=== PATIENT | female | born 1985 | race Caucasian/White ===

== ENCOUNTER 2024-10-02 20:40 | Emergency (ER) | payer OTHER, SELFPAY ==
[2024-10-02 20:43] VITALS: BP 116/67
[2024-10-02 21:08] LABS: % Basophils 0.5 % (0-2); % Eosinophils 2.5 % (0-6); % Immature Granulocytes 0.2 % (0-0.5); % Lymphocytes 31.3 % (20.5-51.1); % Monocytes 6.6 % (1.7-9.3); % Neutrophils 58.9 % (42.2-75.2); Absolute Eosinophils 0.2 10^3/uL (0-0.7); Absolute Monocytes 0.4 10^3/uL (0.1-0.6); Absolute Neutrophils 3.7 10^3/uL (1.4-6.5); Hematocrit 34.8 % (37.0-47.0); Hemoglobin 12.2 g/dL (12.0-16.0); Mean Corp Hgb Conc. 35.1 g/dL (33.0-37.0); Mean Corpuscular Hgb 30.1 pg (27.0-31.0); Mean Corpuscular Volume 85.9 fL (81.0-99.0); Mean Platelet Volume 9.7 fL (7.4-10.4); Nucleated Red Blood Cells % 0 %; Platelet Count 373 10^3/uL (130-400); Red Blood Cell Count 4.05 10^6/uL (4.20-5.40); Red Cell Dist. Width 12.3 % (11.5-14.5); White Blood Cell Count 6.3 10^3/uL (4.8-10.8)
[2024-10-02 21:38] LABS: ALT (SGPT) 21 U/L (0-35); AST (SGOT) 23 U/L (14-36); Albumin 4.8 g/dl (3.5-5.0); Alkaline Phosphatase 128 U/L (38-126); Blood Urea Nitrogen 9 mg/dl (7-17); Calcium 9.9 mg/dl (8.4-10.2); Carbon Dioxide 23 mmol/L (22-30); Chloride 107 mmol/L (98-107); Glucose 93 mg/dl (70-99); Potassium 4.4 mmol/L (3.5-5.1); Sodium 136 mmol/L (135-145); Total Bilirubin 0.4 mg/dl (0.2-1.3); Total Protein 8.1 g/dl (6.3-8.2); eGFR > 60.00
[2024-10-02 21:40] LABS: Lipase 39 U/L (23-300)
[2024-10-02 22:20] LABS: Urine Albumin Negative (Neg - Trace); Urine Bilirubin Negative (Negative); Urine Character Clear (Clear); Urine Color Yellow; Urine Glucose Negative (Negative); Urine Ketone Negative (Negative); Urine Leukocyte Negative (Negative); Urine Nitrite Negative (Negative); Urine Occult Blood Negative (Negative); Urine Urobilinogen Negative (Neg - 1+)
[2024-10-03 00:39] VITALS: BP 122/69
[2024-10-03 00:40] VITALS: BMI 19.4
--- NOTE | 2024-10-03 00:43 | ED.GENMED ---
History of Present Illness
General
Chief Complaint: Abdominal Pain
Source: patient
Exam Limitations: none
Time Seen by Provider: 10/03/24 00:17
History of Present Illness
History of Present Illness:
Note:
CHIEF COMPLAINT(S)
Abdominal pain.
HISTORY OF PRESENT ILLNESS
The patient is a 39-year-old female with a past medical history of migraines who presenting with abdominal pain and diarrhea. The diarrhea began approximately August 28, 2024, following antibiotic treatment post-surgery, and the patient described it as
malodorous and porridge-like. The diarrhea resolved following a course of vancomycin initiated by the surgeon, although a C. difficile infection was not confirmed. The patient reports ongoing gastrointestinal issues, a history of constipation,
weight loss of nearly 20 pounds over two weeks, and dehydration. The patient states that the diarrhea has resolved and they did obtain a stool sample last week and she is awaiting the results from her primary care provider additionally, she
experiences fever-like chills, yet no fever is recorded at home. The patient also reports tension and numbness in the abdominal region that started a few weeks ago near her tummy tuck procedure, with symptoms worsening over time, now accompanied by
back pain. The symptoms have not been fully evaluated by a CT scan, as insurance approval is pending. She denies any nausea, vomiting, chest pain, shortness of breath, dark tarry stools, rectal bleeding.
ADDITIONAL HISTORY OBTAINED FROM SOURCES OTHER THAN THE PATIENT
According to family history, the patients sister has Crohns disease, and her brother has inflammatory gut issues.
EXTERNAL RECORDS REVIEWED
Prior colonoscopy approximately four to five years ago showed normal findings, despite constipation complaints at the time.
CHRONIC MEDICAL CONDITIONS SIGNIFICANTLY AFFECTING CARE
Chronic conditions affecting care: a family history of inflammatory bowel disease.
SOCIAL HISTORY
No recent substance use or smoking mentioned.
REVIEW OF SYSTEMS
See HPI
PHYSICAL EXAM
Nursing notes reviewed and vital signs reviewed.
General: Patient is well appearing and in no acute distress; non-toxic
Skin: Warm and dry, no rashes or lesions
Head: Normocephalic, atraumatic
Eyes: Sclera non-icteric. EOMs intact.
Cardiac: Regular rate and rhythm, no murmurs
Peripheral Vascular: No lower extremity swelling or edema
Pulm: Normal respiratory effort, no wheezes, rales, rhonchi
Abdomen: Bilateral lower abdominal quadrant tenderness to palpation. Negative Garzon sign. No tenderness at McBurney's point. Normoactive bowel sounds
Neuro: CN II-XII intact, no focal neurologic deficits.
Psychiatric: Anxious affect.
PLAN
CT scan, CMP, CBC, urinalysis
DIFFERENTIAL DIAGNOSIS
The Differential Diagnosis includes, in no particular order and is not limited to:
- Infectious colitis
- Clostridioides difficile infection
- Crohns disease
- Ulcerative colitis
- Irritable bowel syndrome
- Diverticulitis
- Small intestinal bacterial overgrowth
- Gastritis
- Pancreatic insufficiency
- Gastroenteritis
- Ischemic colitis
MDM/DISPOSITION
The patient is a 39-year-old female with a past medical history of migraines who presenting with abdominal pain and diarrhea. The diarrhea has since resolved but she did collect a sample last week that she sent to her primary care provider and she
is awaiting her results. Abdominal pain comes and goes. She feels like there is a tightness and stretching sensation. Seem to start after her tummy tuck. She has no fevers or chills. She has no nausea or vomiting. She went for CAT scan showed
findings consistent with enteritis. This explains diarrhea. Stool cultures pending. There is also evidence of distention of the gallbladder with multiple gallstones. Patient is pain-free with Toradol. Patient does feel like the pain gets worse
as her eating. The CT scan also reveals questionable mild gallbladder wall thickening however no definitive very cholecystic fat infiltration and normal CBD. In light of no right upper quadrant pain, normal CMP, highly doubt early cholecystitis.
Strict return precautions discussed. Patient stable for discharge to follow-up with her PCP.
Past History
Past History
ED Past Medical History: None and Other (Chronic back pain, migraines)
ED Past Surgical History: Other (Spinal fusion 2009 for which she is in pain management with Methadone 20 mg q 6 hours)
Social History
Tobacco: Non-smoker
Alcohol: None
Drug: None
Personal: Single
Living: with family
Family History
Family History: Unable to obtain
Phy Exam
Physical Exam
Physical Exam:
see hpi
Course
Orders/Labs/Results
Orders:
Orders
10/02/24 20:49
IV Insert/Care/Rem.- Treatment PRN
10/02/24 20:54
Complete Blood Count/With Diff Urgent
Comprehensive Metabolic Panel Urgent
HCG, Serum Qualitative Screen Urgent
Comment: ADD ON
Lipase Urgent
10/02/24 22:11
Urinalysis Reflex To Culture Urgent
Date Specimen was Collected: 10/02/24
Time Specimen was Collected: 20:49
10/03/24 00:57
Ketorolac [Toradol] 15 mg IV NOW STA
10/03/24 00:58
CT Abd/pelvis W Iv Cont Urgent
Comment:
Reason For Exam: right lower abdominal pain
0.9% Sodium Chloride 500 ml [Nss] 500 ml IV BOLUS
Test Result ONCE
10/03/24 01:17
Add On- LAB Urgent
Comments:: HCG
Tests Added?: HCG serum qualitative
Abnormal Lab Results
10/02/24
20:54
RBC 4.05 L 10^6/uL
(4.20-5.40)
Hct 34.8 L %
(37.0-47.0)
Alkaline Phosphatase 128 H U/L
(38-126)
10/02/24 20:54
10/02/24 20:54
Vital Signs
Initial and Last Documented VS:
Initial Vital Signs
Temp Pulse Resp BP Pulse Ox
98 F 114 16 116/67 94
10/02/24 20:43 10/02/24 20:43 10/02/24 20:43 10/02/24 20:43 10/02/24 20:43
Last Documented Vital Signs
Temp Pulse Resp BP Pulse Ox
98.5 F 114 16 103/63 100
10/03/24 05:20 10/02/24 20:43 10/02/24 20:43 10/03/24 02:00 10/03/24 00:44
*Pulse Oximetry
SaO2: 100
Oxygen Mode of Delivery: Room air
Patient hypoxic: no
*Critical Care Note
Total Time (30-74mins, 75-104mins- exclusive of procedures): Not Applicable
ED Attending Note
-
Portions of this chart may have been created with voice recognition software.� Occasional wrong word or��sound alike� substitutions may have occurred due to the inherent limitations of voice recognition software.
Discharge Plan
Departure
Patient Disposition: Home (Routine Discharge)
Date of Disposition: 10/03/24
Time of Disposition: 05:21
Patient with high blood pressure during this ER visit?: Yes
Condition: Good
Discharge Problem:
Abdominal pain
Instructions: Abdominal Pain, BLOOD PRESSURE
Prescriptions:
No Action
prenat.vits,elly,yhg-ucco-kzbic Tablet
1 tab PO DAILY
methadone 10 mg/mL Concentrate
110 mg PO DAILY
Patient Comments:
01/28/22 LG: confirmed dose with [facility] [phone]
methadone 10 mg/mL Concentrate
70 mg PO QPM
Patient Comments:
01/28/22 LG: confirmed dose with [facility] [phone]
acetaminophen 325 mg Tablet
650 mg PO Q4HPRN PRN (Reason: mild pain) Qty: 30 0RF
ibuprofen 600 mg Tablet
600 mg PO Q6HPRN PRN (Reason: moderate pain/cramps) Qty: 30 0RF
Referrals:
UNKNOWN - PT DOES,NOT KNOW [Unknown Provider]
Activity Restrictions/Additional Instructions:
As discussed, your CAT scan showed evidence of gallstones. Your urinalysis is normal. Your blood work is unremarkable.
Please follow-up with your primary care provider for the results of your stool study.
PLEASE RETURN TO THE EMERGENCY DEPARTMENT TO DEVELOP ACUTE WORSENING OR SYMPTOMS, YELLOWING OF THE EYES OR SKIN, FEVERS OR CHILLS, INTRACTABLE NAUSEA OR VOMITING, CHEST PAIN OR SHORTNESS OF BREATH, OR ANY OTHER SIGNS OR SYMPTOMS WORRISOME TO YOU.
Interventions
Interventions:
*Risk Screen - Suicide Last Done: 10/02/24 20:43
*General Assessment Last Done: 10/03/24 00:43
*Neglect/Abuse Screening Last Done: 10/02/24 20:43
*ED- Fall Risk Assessment Last Done: 10/03/24 00:43
*ED COVID-19 Vaccine History Last Done: 10/03/24 00:43
*Nursing Disposition Last Done: 10/03/24 05:27
RM-Hcrvto-Uhwsccpogf Assessment Last Done: 10/03/24 00:57
Discharge Date and Time
Discharge Date/Time: 10/03/24 06:43
Print Language: KHMER
[2024-10-03] MEDS: NSS 500 IV (01:22)
[2024-10-03] MEDS: TORADOL 15 MG IV (01:23)
[2024-10-03 01:55] LABS: HCG, Serum Qualitative Screen Negative
[2024-10-03 02:00] VITALS: BP 103/63
== END 2024-10-03 06:43 | disposition home or self-care (01) ==
LOC: EMR 20:40
PROVIDERS: Emergency Medicine; EMERGENCY PHYSICIAN Student in an Organized Health Care Education/Training Program; FAMILY PHYSICIAN Physician Assistant
DX: R10.9 Unspecified abdominal pain (principal); R20.0 Anesthesia of skin; R63.4 Abnormal weight loss; K80.20 Calculus of gallbladder without cholecystitis without obstruction; R03.0 Elevated blood-pressure reading, without diagnosis of hypertension; G43.909 Migraine, unspecified, not intractable, without status migrainosus; M54.9 Dorsalgia, unspecified; F11.90 Opioid use, unspecified, uncomplicated; Z98.890 Other specified postprocedural states; Z98.1 Arthrodesis status
CPT/HCPCS: 99284; 96374; 96361; 74177; 80053; 81003; 83690; 84703; 85025; Q9967

== ENCOUNTER 2024-10-09 18:31 | Emergency (ER) | payer OTHER, SELFPAY ==
[2024-10-09 18:35] VITALS: BP 137/82
[2024-10-09 19:53] VITALS: BP 129/75
[2024-10-09 19:58] VITALS: BP 129/75; BMI 19.7
[2024-10-09 20:02] VITALS: BP 134/79
[2024-10-09 20:10] LABS: Hematocrit 33.4 % (37.0-47.0); Hemoglobin 11.8 g/dL (12.0-16.0); Mean Corp Hgb Conc. 35.3 g/dL (33.0-37.0); Mean Corpuscular Volume 86.8 fL (81.0-99.0); Nucleated Red Blood Cells % 0 %; Platelet Count 331 10^3/uL (130-400); Red Cell Dist. Width 12.3 % (11.5-14.5)
[2024-10-09 20:19] LABS: HCG, Serum Qualitative Screen Negative
[2024-10-09 20:22] LABS: ALT (SGPT) 35 U/L (0-35); AST (SGOT) 25 U/L (14-36); Albumin 4.8 g/dl (3.5-5.0); Alkaline Phosphatase 148 U/L (38-126); Blood Urea Nitrogen 8 mg/dl (7-17); Calcium 10.1 mg/dl (8.4-10.2); Carbon Dioxide 25 mmol/L (22-30); Chloride 105 mmol/L (98-107); Estimated Creatinine Clearance 116 ml/min; Glucose 107 mg/dl (70-99); Lipase 29 U/L (23-300); Potassium 4.7 mmol/L (3.5-5.1); Sodium 137 mmol/L (135-145); Total Protein 8.2 g/dl (6.3-8.2); eGFR > 60.00
--- NOTE | 2024-10-09 20:50 | ED.GENMED ---
History of Present Illness
General
Chief Complaint: Abdominal Symptoms
Time Seen by Provider: 10/09/24 20:09
History of Present Illness
History of Present Illness:
39-year-old female history of chronic back pain, migraines presenting with multiple complaints. Patient states that she has been having 'GI issues' for the past few months. Patient states that she had a tummy tuck and breast augmentation in July.
Patient states that before that she was on Keflex and then another antibiotic. Patient states that since then she was having diarrhea. Patient states she was treated with vancomycin for presumed cdiff but never tested. Patient states that she has
since had negative stool cultures. Patient states that she was seen in the emergency department last week, diagnosed with enteritis and discharged. Patient states that she has been feeling worse, noticed bright red blood in her stool. Patient
states that she has been constipated for the past few days, states that she has been straining to using enemas to have bowel movements. Patient states that she is not passing gas for months. Patient reports increasing shortness of breath. No
chest pain. Patient states she feels shaky and has had 'brain fog'. No fevers. Patient denies vomiting or urinary symptoms. Patient reports being concerned for IBD as family members have hx of crohns.
Past History
Past History
ED Past Medical History: None and Other (Chronic back pain, migraines)
ED Past Surgical History: Other (Spinal fusion 2009 for which she is in pain management with Methadone 20 mg q 6 hours)
Social History
Tobacco: Non-smoker
Alcohol: None
Drug: None
Personal: Single
Living: with family
Family History
Family History: Unable to obtain
Phy Exam
Physical Exam
Physical Exam:
General: Alert, no acute distress
Head: NCAT
Eyes: clear conjunctiva
Neck: supple
Cardiac: regular rate and rhythm, no murmur
Lungs: clear to auscultation bilaterally. No wheezes, rales, or rhonchi. Speaking full unlabored sentences. No respiratory distress.
Abdomen: soft, nondistended. Patient reports diffuse abdominal tenderness but nontender when patient distracted. Well-healing surgical incision lower abdomen with no overlying erythema or discharge.
MSK: no lower extremity edema bilaterally. No deformity
Skin: warm, dry
Neuro: Alert and oriented x3. no focal deficits
Psych: Anxious
: Minimal stool. No blood. Guaiac negative.
Course
Orders/Labs/Results
Orders:
Orders
10/09/24 18:38
Test Result ONCE
10/09/24 19:57
Complete Blood Count/With Diff Urgent
Comprehensive Metabolic Panel Urgent
HCG, Serum Qualitative Screen Urgent
Lipase Urgent
10/09/24 20:49
0.9% Sodium Chloride 1000 ml [Nss] 1,000 ml IV BOLUS
Dicyclomine [Bentyl] 20 mg PO NOW STA
10/09/24 21:07
Troponin I Urgent
10/09/24 21:39
D-Dimer Urgent
10/09/24 22:42
CT Pe/abd/pel W Urgent
Comment: changed to combine
Reason For Exam: sob, tachycardia
10/09/24 22:52
Ketorolac [Toradol] 15 mg IV NOW STA
10/09/24 23:03
UA Reflex to Culture [Urinalysis Reflex To Culture] Urgent
Date Specimen was Collected: 10/09/24
Time Specimen was Collected: 23:00
Abnormal Lab Results
10/09/24 10/09/24
19:57 21:39
RBC 3.85 L 10^6/uL
(4.20-5.40)
Hgb 11.8 L g/dL
(12.0-16.0)
Hct 33.4 L %
(37.0-47.0)
D-Dimer 1.21 H ug/mlFEU
(0.00-0.50)
Glucose 107 H mg/dl
(70-99)
Alkaline Phosphatase 148 H U/L
(38-126)
10/09/24 19:57
10/09/24 19:57
Vital Signs
Initial and Last Documented VS:
Initial Vital Signs
Temp Pulse Resp BP Pulse Ox
98.4 F 55 16 137/82 97
10/09/24 18:35 10/09/24 18:35 10/09/24 18:35 10/09/24 18:35 10/09/24 18:35
Last Documented Vital Signs
Temp Pulse Resp BP Pulse Ox
98.2 F 96 18 140/79 99
10/09/24 19:58 10/10/24 00:57 10/10/24 00:57 10/10/24 00:57 10/10/24 00:57
MDM/Problems Addressed
Differential Diagnosis Includes:
IBS, PE, PARISA, electrolyte abnormality
MDM/Problems Addressed:
39-year-old female presenting with lower abdominal tightness and increased back pain with constipation worsening since last week. Patient was seen in the emergency department last week, diagnosed with enteritis and was discharged without
antibiotics. Patient states that she has noticed that her heart rate has been elevated for the past day with shortness of breath for the past few months. Patient denies chest pain. On evaluation, patient anxious appearing. Abdomen soft
nondistended nontender when patient distracted. Well-healing surgical incision lower abdomen. Given guaiac negative, hemoglobin stable, low suspicion for IBD.
Labs significant for baseline anemia at 11.8 (previously 12.2 last week). UA negative for UTI
CTA shows no pulmonary embolism, no thoracic aneurysm or dissection. Lungs are clear. Mediastinal and cardiac structures are unremarkable. CT abdomen pelvis shows mild rectal wall thickening which may be due to underdistention or proctitis. No
bowel obstruction. Appendix not visualized. Mild mesenteric congestion. No free air or free fluid. Pessary device is noted. No hydronephrosis or nephrolithiasis.
Discussed results with patient at bedside. Discussed reassuring results here in the emergency department. Heart rate improved to 96. Stable for discharge home with GI follow-up outpatient
*Pulse Oximetry
SaO2: 90
Oxygen Mode of Delivery: Room air
Patient hypoxic: no
*Critical Care Note
Total Time (30-74mins, 75-104mins- exclusive of procedures): Not Applicable
ED Attending Note
-
Portions of this chart may have been created with voice recognition software.� Occasional wrong word or��sound alike� substitutions may have occurred due to the inherent limitations of voice recognition software.
Discharge Plan
Departure
Patient Disposition: Home (Routine Discharge)
Date of Disposition: 10/10/24
Time of Disposition: 01:41
Patient with high blood pressure during this ER visit?: Yes
Discharge Problem:
Lower abdominal pain
Instructions: Abdominal Pain, BLOOD PRESSURE
Prescriptions:
No Action
prenat.vits,elly,nho-feta-uizod Tablet
1 tab PO DAILY
methadone 10 mg/mL Concentrate
110 mg PO DAILY
Patient Comments:
01/28/22 LG: confirmed dose with [facility] [phone]
methadone 10 mg/mL Concentrate
70 mg PO QPM
Patient Comments:
01/28/22 LG: confirmed dose with [place] [phone]
acetaminophen 325 mg Tablet
650 mg PO Q4HPRN PRN (Reason: mild pain) Qty: 30 0RF
ibuprofen 600 mg Tablet
600 mg PO Q6HPRN PRN (Reason: moderate pain/cramps) Qty: 30 0RF
Referrals:
Madi Bruno MD [Active, Gastroenterology]
Andrew Chowdhury MD [Family Provider, Family Practice]
Activity Restrictions/Additional Instructions:
Follow-up with GI
Return to the emergency department for fever or new symptoms
Interventions
Interventions:
*Risk Screen - Suicide Last Done: 10/09/24 18:38
*General Assessment Last Done: 10/10/24 02:20
*Neglect/Abuse Screening Last Done: 10/09/24 18:38
*ED- Fall Risk Assessment Last Done: 10/10/24 02:20
*ED COVID-19 Vaccine History Last Done: 10/10/24 02:20
*Nursing Disposition Last Done: 10/10/24 02:20
SN-Csuiad-Pywqyqkkhy Assessment Last Done: 10/09/24 20:14
Discharge Date and Time
Discharge Date/Time: 10/10/24 02:21
Print Language: URDU
[2024-10-09] MEDS: BENTYL 20 MG PO (21:04)
[2024-10-09] MEDS: NSS 1000 IV (21:06)
[2024-10-09 21:51] LABS: Troponin I < 0.012 ng/ml
[2024-10-09 22:01] LABS: D-Dimer 1.21 ug/mlFEU (0.00-0.50)
[2024-10-09] MEDS: TORADOL 15 MG IV (22:57)
[2024-10-09 23:12] LABS: Urine Character Clear (Clear)
[2024-10-10 00:23] VITALS: BP 132/76
[2024-10-10 00:57] VITALS: BP 140/79
== END 2024-10-10 02:21 | disposition home or self-care (01) ==
LOC: EMR 18:31
PROVIDERS: Student in an Organized Health Care Education/Training Program; EMERGENCY PHYSICIAN Emergency Medicine; FAMILY PHYSICIAN Family Medicine
DX: R10.30 Lower abdominal pain, unspecified (principal); K92.1 Melena; R06.02 Shortness of breath; K59.00 Constipation, unspecified; R03.0 Elevated blood-pressure reading, without diagnosis of hypertension; K52.9 Noninfective gastroenteritis and colitis, unspecified; M54.9 Dorsalgia, unspecified; D64.9 Anemia, unspecified; G43.909 Migraine, unspecified, not intractable, without status migrainosus; F11.90 Opioid use, unspecified, uncomplicated; G89.29 Other chronic pain; Z98.1 Arthrodesis status
CPT/HCPCS: 99284; 96361 ×2; 96374; 71275; 74177; 80053; 81003; 83690; 84484; 84703; 85025; 85379; Q9967

== ENCOUNTER 2024-10-31 04:55 | Inpatient (IN) | payer OTHER, SELFPAY ==
[2024-10-30 20:18] VITALS: BP 126/90
[2024-10-30 21:21] LABS: Hematocrit 40.4 % (37.0-47.0); Hemoglobin 13.6 g/dL (12.0-16.0); Mean Corp Hgb Conc. 33.7 g/dL (33.0-37.0); Mean Corpuscular Volume 88.6 fL (81.0-99.0); Nucleated Red Blood Cells % 0 %; Platelet Count 476 10^3/uL (130-400); Red Cell Dist. Width 12.3 % (11.5-14.5)
[2024-10-30 21:24] VITALS: BMI 19.4
[2024-10-30 21:45] LABS: HCG, Serum Qualitative Screen Negative
[2024-10-30 21:49] LABS: ALT (SGPT) 26 U/L (0-35); AST (SGOT) 27 U/L (14-36); Albumin 5.2 g/dl (3.5-5.0); Alkaline Phosphatase 150 U/L (38-126); Blood Urea Nitrogen 13 mg/dl (7-17); Calcium 10.0 mg/dl (8.4-10.2); Carbon Dioxide 26 mmol/L (22-30); Chloride 99 mmol/L (98-107); Estimated Creatinine Clearance 118 ml/min; Glucose 135 mg/dl (70-99); Potassium 4.1 mmol/L (3.5-5.1); Sodium 135 mmol/L (135-145); Total Protein 9.1 g/dl (6.3-8.2); eGFR > 60.00
[2024-10-30] MEDS: MORPHINE SULFATE 4 MG IV (23:52)
[2024-10-30] MEDS: NSS 1000 IV (23:54)
[2024-10-30] MEDS: ZOFRAN 4 MG IV (23:54)
[2024-10-31] MEDS: DILAUDID 0.5 MG IV ×2 (00:50→03:30)
[2024-10-31] MEDS: OFIRMEV 100 IV (01:21)
--- NOTE | 2024-10-31 02:32 | ED.GENMED ---
History of Present Illness
General
Chief Complaint: Back Pain
Source: patient
Exam Limitations: none
Time Seen by Provider: 10/30/24 23:30
Nursing documentation reviewed up to this point in time: agreed with
History of Present Illness
History of Present Illness:
Note:
CHIEF COMPLAINT(S)
Pain, unspecified location and duration.
HISTORY OF PRESENT ILLNESS
The patient is a 39-year-old female who presents with pain. The onset of the pain was at 3:30, as stated by the patient. During the discussion, the patient indicated that there was a significant discomfort, described as 'a lot.' The exact location
and character of the pain were not specified during the conversation. Patient states that the pain is sharp in nature. Radiates through to her back. She also did have some chest tightness.
PHYSICAL EXAM
General: Alert, severe acute distress. Writhing in the bed, alternatively pacing around the room
Skin: Warm, dry.
Head: Normocephalic, atraumatic.
Neck: Supple, trachea midline.
Eye Ears, Nose, Mouth and Throat: Oral mucosa moist.
Cardiovascular: Normal peripheral perfusion, No edema.
Respiratory: Respirations are non-labored.
Gastrointestinal: Abdomen nondistended. Surgical scar in the lower abdomen horizontally where patient had a 'tummy tuck'. She spoke with Dr. Cordova who ordered lab work earlier.
Back: Normal range of motion, Normal alignment.
Musculoskeletal: Normal ROM, normal strength.
Neurological: Alert and oriented to person, place, time, and situation, No focal neurological deficit observed.
Psychiatric: Cooperative, appropriate mood & affect.
PLAN
The plan includes administering pain medication and allowing time for the medication to take effect, with a reassessment planned approximately 15 minutes after administration. The patient expressed consent for pain relief intervention.
DIFFERENTIAL DIAGNOSIS
The Differential Diagnosis includes, in no particular order and is not limited to:
1. Musculoskeletal pain
2. Neuropathic pain
3. Inflammatory conditions
4. Acute injury
5. Psychosomatic pain
6. Referred pain from visceral organs
7. Acute infection such as cellulitis or abscess
8. Gastrointestinal disturbance
9. Cervical or lumbar radiculopathy
10. Stress-related conditions
CARE-UPDATE
10/31/24 - 00:41
Patient reports a month-long history of abdominal tightness progressive to severe back pain, exacerbated heart rate, episodes of dizziness, confusion, and fluctuating oxygen levels. Symptoms coincide with previous autoimmune-like presentations,
including oral ulcers and systemic inflammation, possibly related to bowel issues. Recent bowel movement irregularities include severe constipation and diarrhea with blood, resulting in significant unintentional weight loss and frequent bruising.
Abdominal distention and persistent pain prompted consultation. Elevated calprotectin suggests inflammation, while low iron saturation, high C-reactive protein, and ferritin levels indicate systemic response. Methadone use has decreased due to
exacerbated symptoms. Recent D-dimer elevation, despite a previous negative lung scan for embolism, warrants repeat imaging to rule out thromboembolic events. Upcoming diagnostics include lung and abdominal CT scans. Current symptoms suggest an
urgent need for comprehensive evaluation and management, given high clot risk and systemic alterations. Monitoring involves a heart rate tracker for further insight into cardiovascular implications. Patient reassured and prepared for upcoming tests
and interventions.
CARE-UPDATE
10/31/24 - 03:12
Patient reports severe abdominal pain, unable to sit for initial CAT scan. Administered [appropriate medication name] for pain management. Plan to administer an additional dose due to persistent pain, followed by another attempt at imaging.
CARE-UPDATE
10/31/24 - 04:[address] chest PE studies; no acute findings noted. No immediate changes in management necessary based on current imaging. Continue monitoring patients status.
Disposition:
SUMMARY OF ENCOUNTER
A 39-year-old female was seen in the emergency department for severe abdominal pain, with a background of acute on chronic back pain. Initial assessment included completing a CT scan, which returned with negative findings. Due to the exacerbation of
the patients symptoms and increased usage of pain medication, the decision was made for hospital admission.
DISPOSITION
Admit
ASSESSMENT
The patient presents with severe abdominal pain and acute on chronic back pain.
PLAN
The patient will be admitted to a hospital service for further management and monitoring.
INDEPENDENT REVIEW OF LABS AND INTERPRETATION OF TESTS
My independent review of the CT scan indicates no acute findings.
MEDICAL DECISION MAKING
- Number and Complexity of Problems Addressed: Chronic conditions affecting care [chronic low back pain]
- Data:
- Category 2: My independent interpretation of the CT scan indicates no acute findings.
- Risk: Due to the increasing pain and medication usage, the decision for hospital admission was made to manage the complexity and risk of the patients presenting complaints and to closely monitor.
DIAGNOSIS
- Abdominal pain (ICD-10: R10.9)
- Chronic low back pain (ICD-10: M54.5)
Past History
Past History
ED Past Medical History: None and Other (Chronic back pain, migraines)
ED Past Surgical History: Other (Spinal fusion 2009 for which she is in pain management with Methadone 20 mg q 6 hours)
Social History
Tobacco: Non-smoker
Alcohol: None
Drug: None
Personal: Single
Living: with family
Family History
Family History: Unable to obtain
Phy Exam
General Physical Exam
General Presentation: moderate distress
General age: appears stated age
General Skin: warm
General Habitus: normal
General Mental: alert
General Hydration: appears well hydrated
ENT Exam
ENT Exam: EOMI, pharynx normal, neck supple and normocephalic
Eye Exam
Eye Exam: PERRL, cornea clear and conjunctiva normal
Cardiovascular Exam
Cardiovascular Exam: regular rate/rhythm, no edema, no murmur and normal peripheral pulses
Pulmonary Exam
Pulmonary Exam: lungs clear, no respiratory distress, no rales, no crackles, no rhonchi, no stridor, no wheezing and no cough
Gastrointestinal Exam
Gastrointestinal Exam: soft, non distended, no cva tenderness, guarding, no indwelling devices and tender
Palpation: generalized: Severe tenderness
Neurological Exam
Neurological Exam: alert, oriented x3, no motor deficits and speech normal
Musculoskeletal Exam
Musculoskeletal Exam: full ROM and no edema
Skin Exam
Skin Exam: normal color, warm/dry, no rash and no petechia
Psychiatric Exam
Psychiatric Exam: normal mood/affect
Course
Orders/Labs/Results
Orders:
Orders
10/30/24 20:24
Test Result ONCE
10/30/24 21:11
C-Reactive Protein Urgent
Comment: ADDED
Complete Blood Count/With Diff Urgent
Comprehensive Metabolic Panel Urgent
Erythrocyte Sed Rate Urgent
Comment: ADDED
HCG, Serum Qualitative Screen Urgent
Lactic Acid Urgent
10/30/24 23:51
0.9% Sodium Chloride 1000 ml [Nss] 1,000 ml IV BOLUS
Morphine Sulfate 4 mg .ROUTE .STK-MED ONE
Ondansetron Injectable [Zofran] 4 mg .ROUTE .STK-MED ONE
Ondansetron Injectable [Zofran] 4 mg IV NOW STA
10/30/24 23:52
Morphine Sulfate 4 mg IV NOW STA
10/31/24 00:45
HYDROmorphone [Dilaudid] 0.5 mg IV NOW STA
10/31/24 00:46
CT Pe/abd/pel W Urgent
Comment: wrong order placed by attending. ok to change
Reason For Exam: Elev ddimer, cp, tachy, hematochezia
10/31/24 01:16
Acetaminophen 1000MG/100Ml [Ofirmev] 1,000 mg in 100 ml IV ONCE
Acetaminophen IV Indication:: ED Narcotic History-ONCE
10/31/24 02:06
HYDROmorphone [Dilaudid] 0.5 mg IV NOW STA
10/31/24 02:22
Lorazepam [Ativan] 1 mg IV NOW STA
10/31/24 04:12
Fentanyl Citrate/Pf [Sublimaze] 25 mcg IV NOW STA
10/31/24 04:17
Add On- LAB Stat
Tests Added?: CRP, ESR
Calprotectin, Fecal [S] Stat
Stool Culture Stat
TAVO Source: Feces/Stool
Specimen Description:
Stool For WBC Stat
TAVO Source: Feces/Stool
Specimen Description:
Stool for occult blood [Hemetest Stools] As Directed
10/31/24 04:21
Urine Drug Abuse Screen Routine
10/31/24 04:22
Admit/Transfer Patient As Directed
Co-Sign Provider:
Level of Care: Inpatient admission
Assign to:: Medical/Surgical
Physician / Group: Lokes[facility]
Diagnosis: abdominal pain
Reason for Hospitalization: intractable abdominal pain
Expected length of stay greater than two midnights?: Yes
ELOS- Estimated Length of Stay in days: 2
I certify the patient meets the requirements for IP care: Yes
10/31/24 04:23
Code Status As Directed
Resuscitation Status: Full Code
PRN Pain Medication Management As Directed
May give lesser potent ordered pain med per pt: Yes
preference::
Protocol:: Medication orders for pain may be administered in a
manner that supports deferring to patient preference
when the pt is:
- Requesting an ordered lesser potent pain medication.
Least to most potent pain medications are defined
as: acetaminophen < NSAID < tramadol < opioids
(morphine, oxycodone, hydromorphone).
- Requesting a lesser dose of the same medication IF
ORDERED.
- Requesting a less intrusive route of administration
if both routes are prescribed by the provider (PO <
IV).
10/31/24 04:32
Urine Porphobilinogen [Porphobilinogen, Urine] [S] Stat
10/31/24 04:38
Urinalysis Routine
Date Specimen was Collected: 10/31/24
Time Specimen was Collected: 04:37
Abnormal Lab Results
10/30/24 10/31/24
21:11 04:38
WBC 16.6 H 10^3/uL
(4.8-10.8)
Plt Count 476 H 10^3/uL
(130-400)
Abs Immat Gran (auto) 0.1 H 10^3/uL
(0-0.05)
Absolute Neuts (auto) 13.6 H 10^3/uL
(1.4-6.5)
Absolute Monos (auto) 1.3 H 10^3/uL
(0.1-0.6)
Neutrophils % 82.0 H %
(42.2-75.2)
Lymphocytes % 9.1 L %
(20.5-51.1)
Glucose 135 H mg/dl
(70-99)
Lactic Acid 2.3 H mmol/L
(0.7-2.0)
Alkaline Phosphatase 150 H U/L
(38-126)
Total Protein 9.1 H g/dl
(6.3-8.2)
Albumin 5.2 H g/dl
(3.5-5.0)
Urine Albumin 2+ A
(Neg - Trace)
10/30/24 21:11
10/30/24 21:11
Vital Signs
Initial and Last Documented VS:
Initial Vital Signs
Temp Pulse Resp BP Pulse Ox
97.6 F 137 20 126/90 98
10/30/24 20:18 10/30/24 20:18 10/30/24 20:18 10/30/24 20:18 10/30/24 20:18
Last Documented Vital Signs
Temp Pulse Resp BP Pulse Ox
97.6 F 98 22 99/54 100
10/30/24 20:18 10/31/24 04:35 10/31/24 04:35 10/31/24 04:36 10/31/24 04:35
*Pulse Oximetry
SaO2: 98
Oxygen Mode of Delivery: Room air
Patient hypoxic: no
*Critical Care Note
Total Time (30-74mins, 75-104mins- exclusive of procedures): 35 (Critical care statement: A total of 35 minutes of critical care time was provided for this patient. This time is separate from time utilized to perform the aforementioned documented
procedures. Aggregate critical care time includes only time during which I was engaged in work directl)
Update Note
Update Note:
Patient states that she has not too much pain to lie flat for CT scan. Has received multiple doses of pain medicine we will try angiolytic.
NAME: MERLYLOUISChung HOLLY Antoine
DATE OF EXAM: 10/31/2024
Patient No: [id number]
Physician: BRUCE
Date of : 1985
Past Medical History (entered by Technologist):
Reason For Exam (entered by Technologist):
Other Notes (entered by Technologist): Patient arrives c/o left sided flank/back pain. Reports pain radiates down into left leg. Denies loss of bowel or bladder.
Additional Information (per [facility] Radiologist): Left-sided flank pain and back pain
CTA chest PE
CT abdomen and pelvis
Comparison: 10/09/2024
IMPRESSION:
CTA chest PE:
Sufficient contrast opacification of the pulmonary arteries
There is limitation due to respiratory motion
No appreciable pulmonary embolus to the segmental pulmonary arterial level
No appreciable acute thoracic aortic pathology on this non-ECG gated exam
Normal size heart
Pericardium appears within normal limits
No evidence for pneumonia or pulmonary edema
No pleural effusion or pneumothorax
CT abdomen and pelvis:
No obstructing ureteral calculus, hydroureteronephrosis or signs of polynephritis
Urinary bladder appears thickened which could be due to incomplete distention versus possible cystitis
No other acute intra-abdominal pathology
Previous posterior fusionL5-S1
Probable bone island in the left femoral neck
Report faxed directly to ER at 4:50 AM ET
Abhijeet Damian M.D.
This report has been electronically signed and verified by the Radiologist whose name is printed above.
ED Attending Note
-
Portions of this chart may have been created with voice recognition software.� Occasional wrong word or��sound alike� substitutions may have occurred due to the inherent limitations of voice recognition software.
Discharge Plan
Departure
Patient Disposition: Admit
Date of Disposition: 10/31/24
Time of Disposition: 05:03
Admit to: Telemetry
Presentation/result/management discussed w/ accepting MD/DO: Hospitalist
Condition: Fair
Discharge Problem:
Abdominal pain, Chest pain
Interventions
Interventions:
*Risk Screen - Suicide Last Done: 10/30/24 20:18
*Neglect/Abuse Screening Last Done: 10/30/24 20:18
ED-Musculoskeletal Assessment Last Done: 10/30/24 21:26
[2024-10-31] MEDS: ATIVAN 1 MG IV (02:35)
--- NOTE | 2024-10-31 03:16 | HPS.HSE ---
Family Physician
-
Family Physician: NOT KNOW UNKNOWN - PT DOES
Chief Complaint
-
Abdominal pain
History of Present Illness
This is a 39-year-old female with past medical history of cutaneous T-cell lymphoma, chronic back pain, opioid dependence on methadone who presents to the Emergency Department with persistent abdominal pain.
According to patient and spouse she has been having abdominal pain for several weeks now and has had extensive studies as an outpatient. Patient has had multiple CT scans she is also had multiple blood test and also stool studies. Patient stated
that abdominal pain is usually in the bilateral lower quadrant radiating to the back. She said that she occasionally has had bloody stools. However over the last 2 days she has had a copious amount of bloody stool and large amount of mucus in her
stool. She denies any rash. She denies any fevers or chills. She denies nausea or vomiting. She reports weight loss and decreased p.o. intake. Due to the abdominal pain she has a scheduled follow-up with GI on November 09.
Patient showed me some of her tests and specifically she had a stool study that was negative for bacteria parasites but was positive for fecal calprotectin at over 1200. She reports family history with sister with IBD, brother with IBS but no other
family history. She had a recent abdominoplasty as well as breast augmentation in July without complications. She denies bowel obstruction. Recent CT scan negative for bowel obstruction or peritonitis. He is also had a recent CT scan for PE
that was negative in early October. She denies dysuria or hematuria. Since being in the emergency department pain has been intractable.
Independent department patient was afebrile, blood pressure was 126/90 with a pulse of 100 and respiratory of 24.
CBC showed a white count of 16.6 otherwise unremarkable. Electrolytes were all normal, BUN/creatinine were normal. Lactic acid was slightly abnormal at 2.3.
LFTs were normal. Alk phos slightly elevated. Albumin was 5.2 with a total protein of 9
Medical History
Past Medical History
Past Medical History: Reports Other
Additional Past Medical History:
Cutaneous T-cell lymphoma
Anxiety
Past Surgical History: Reports Other
Social History
Tobacco: Non-smoker
Alcohol: None
Drug: None
Living: With Family
Family History
Family History: Not pertinent
Allergies / Home Medications
Allergies reflects when Allergies were last updated in [employer].
Home Medications with original date entered in [employer]
Allergy/Medication List:
Allergies
Allergy/AdvReac Type Severity Reaction Status Date / Time
No Known Allergies Allergy Verified 10/30/24 20:17
Home Medications
Valchlor 0.016 % 1 application Externally Active
Clobetasol Propionate 0.05 % 1 application to affected area Externally Twice a day for 10 day(s) Active
Methadone HCl 10 MG take 1 tablet by oral route every 8 hours as needed Oral takes 10mg BID Active
NuvaRing 0.12-0.015 MG/24HR [address] for 3 weeks, remove, and replace with a new ring after 7 day break Vaginal for 28 days Jul, Active
Gabapentin 300 MG 1 capsule Orally three times a day for 30 day(s) prn Active
Concerta 36 MG 1 tablet in the morning Orally Once a day for 30 days Oct, Active
Ritalin 5 MG 1 tablet in the afternoon Orally Once a day for 30 days Oct, Active
traZODone HCl 50 MG 1 tablet at bedtime as needed Orally Once a day for 30 day(s) Active
LORazepam 1 MG 1-4 tablets as needed 30 mins prior to dental appt Orally Once a day for 1 days Jul, Active
Review of Systems
-
Constitutional: Reports No Symptoms
EENT: Reports No Symptoms
Respiratory: Reports No Symptoms
Cardiac: Reports No Symptoms
Abdomen/GI: Reports Abdominal Pain and Diarrhea
: Reports No Symptoms
Musculoskeletal: Reports No Symptoms
Skin: Reports No Symptoms
Neurological: Reports No Symptoms
Endocrine: Reports No Symptoms
Hematologic/Lymphatic: Reports No Symptoms
Psych: Reports No Symptoms
Physical Exam
Vital Signs
Vital Signs
Temp Pulse Resp BP Pulse Ox
97.6 F 101 24 126/90 97
10/30/24 20:18 10/31/24 02:43 10/31/24 02:43 10/30/24 20:18 10/31/24 02:43
Physical Exam
General: Well Developed, Well Nourished and No Apparent Distress
HEENT: NormoCephalic, Moist mucous membranes and Atraumatic
Respiratory: Clear
Cardiac: S1/S2 and Regular Rhythm; No Murmur or Rub
GI: Soft, Non Tender, Non Distended and Normal Bowel Sounds; No Organomegaly
Rectal: Deferred by Provider
Musculoskeletal: No Clubbing, No Cyanosis and No Edema
Skin: No Rash
Neuro: Nonfocal/grossly intact
Hematologic/Lymphatic: No Lymphadenopathy
Laboratory Results
-
10/30/24 21:11
10/30/24 21:11
Laboratory Results
Lactic Acid 2.3 mmol/L (0.7-2.0) H 10/30/24 21:11
Total Bilirubin 0.6 mg/dl (0.2-1.3) 10/30/24 21:11
AST 27 U/L (14-36) 10/30/24 21:11
ALT 26 U/L (0-35) 10/30/24 21:11
Alkaline Phosphatase 150 U/L (38-126) H 10/30/24 21:11
Data Reviewed
-
CT Scan: Report Reviewed by me
Lab Data: Labs Reviewed by me
Old Records: Reviewed
Impression/Plan
-
IMPRESSION:
39-year-old with history of continues T-cell lymphoma, opioid dependence and chronic pain with on a methadone taper and now on 20 mg twice daily, presenting with several weeks of abdominal pain and more recently having intermittent bloody stools and
mucus containing stools with outpatient studies concerning for inflammatory bowel disease. She is here with leukocytosis and intractable abdominal pain. She has a mild elevation in lactic acid to 2.3. CT of the abdomen pelvis is pending.
PLAN:
Abdominal pain -concern is for inflammatory or infectious colitis. Less likely infectious colitis given history. If inflammatory w/u negative consider acute intermittent porphyria.
- Admit to MedSurg
- Inflammatory panel and fecal studies pending
- CTAP neg, CT PE neg
- N.p.o. for now
- IV fluids, antiemetics, pain control (patient on methadone and likely needs basal and breakthrough pain control)
- UA, U tox, U PBG
- GI consultation
DVT prophylaxis�Lovenox subcu
CODE STATUS�full code
[2024-10-31] MEDS: SUBLIMAZE 25 MCG IV (04:31)
[2024-10-31 04:36] VITALS: BP 99/54
[2024-10-31 04:48] LABS: Urine Character Clear (Clear)
[2024-10-31 05:10] LABS: Urine Squamous Cell >30 /LPF (Few)
[2024-10-31 05:11] LABS: Urine Red Blood Cell None Seen /HPF (0-2); Urine White Cell None Seen /HPF (0-5)
[2024-10-31 05:16] LABS: C-Reactive Protein 16.20 mg/L (0.0-10.00)
[2024-10-31 05:41] VITALS: BP 112/72; BMI 19.3
[2024-10-31] MEDS: D5LR 1000 IV ×2 (05:56→23:59)
[2024-10-31] MEDS: DILAUDID 1 MG IV ×5 (06:00→23:59)
--- NOTE | 2024-10-31 06:20 | PTCARENOTE ---
pt transported from ED to 3W via stretcher. Pt 1-2 assist from stretcher to bed d/t 01/18 abdominal pain. Pt vitals stable, BP 112/72, afebrile, spO2 100 RA. Pt AAOX3, able to make needs known, oriented to room and call allen within reach.
[2024-10-31 06:49] LABS: Hematocrit 30.8 % (37.0-47.0); Hemoglobin 10.3 g/dL (12.0-16.0); Mean Corp Hgb Conc. 33.4 g/dL (33.0-37.0); Mean Corpuscular Volume 89.3 fL (81.0-99.0); Platelet Count 340 10^3/uL (130-400); Red Cell Dist. Width 12.3 % (11.5-14.5)
[2024-10-31 07:12] LABS: Blood Urea Nitrogen 12 mg/dl (7-17); Calcium 9.0 mg/dl (8.4-10.2); Carbon Dioxide 27 mmol/L (22-30); Chloride 102 mmol/L (98-107); Estimated Creatinine Clearance 113 ml/min; Glucose 103 mg/dl (70-99); Potassium 4.1 mmol/L (3.5-5.1); Sodium 135 mmol/L (135-145); eGFR > 60.00
[2024-10-31 07:35] VITALS: BP 104/63
--- NOTE | 2024-10-31 09:26 | CON.GI ---
Addendum entered and electronically signed by Bridgett Howe DO 10/31/24 14:50:
Patient seen and examined independently of YELENA. I agree with her note with my additions below
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
abdominal pain that radiated around to her back. She was recently seen by Dr. Marine Schmitz, GI at [place] and had a positive C. difficile toxin that I reviewed and her [facility] ashley from October 24. She is currently not on any therapy but was
started on Dificid today by YELENA Casas.
She was down in HIDA scan this morning. She does not have biliary type symptoms. No nausea or vomiting. No upper abdominal pain. Her liver chemistries are normal except her alkaline phosphatase is mildly elevated. Her CRP is elevated her WBCs
on admission was 16. All consistent with an inflammatory process like C. difficile.
Patient has had chronic GI issues more with constipation but after her elective cosmetic surgery she developed diarrhea and was empirically treated like C. difficile with vancomycin. The multiple stools she was having did improve but then recently
returned with progressive mucus. She had a C. difficile that was negative earlier in October. She has had multiple imaging studies, none with oral contrast. She has a fecal calprotectin done on 10/24/2024 over thousand. She has significant family
history of inflammatory bowel disease with her sister.
Agree with Dificid. Patient has follow-up with Dr. Shepherd and like to stay here [place] on November 09. She did have endoscopy and colonoscopy back in 2020. She does have a positive GLORIA and a higher titer.
After her treatments resolution of C. difficile, would recommend repeating her colonoscopy to ensure not concomitant IBD.
If patient does not improve consider ID consult
Original Note:
Consultation
-
Date/Time Consultation Requested: 10/31/24529
Date/Time Consultation Performed: 10/31/24929
Requesting Provider: sury Campa MD
Performing Provider: YELENA Chawla, Bridgett Howe DO
Reason for Consultation: abdominal pain/diarrhea
Medical History
Chief Complaint / HPI
Chief Complaint: abdominal pain, diarrhea, rectal bleeding
History of Present Illness:
Pt is a 39yo with hx t cell lymphoma follow with Dr. Joseph on topical therapy, prior back surgery, chronic pain on methadone , anxiety, with recent breast Augmentation and tummy tuck in July. She recall taking post-op abx then onset of diarrhea.
Per patient recall she was placed on PO vanco but never had stool culture +. She continued with symptoms with multiple ER visits with Ct completed x 3 with neg PE as noted with elevated D dimer, gallstones and mild enteritis. She was due to see
Dr. Shepherd scheduled for November 09 but due to continued issues saw Dr. Schmitz through [place] sooner. She completed further stool GI profile now noted with + c-diff and fecal ELLY 1250 with recent GLORIA + CRP 11.63 and ESR 10 on [facility] labs.
In review with patient she admits to feeling of chest tightness, feeling of palpitations and increasing lower abdominal pain. + wt loss up to 20 lbs with recent illness, She did continued with loose stools and noted some small amount of blood
but increased bleeding prior to admission. She has strong family hx IBD in Aunt and sister and brother with IBS. On admission WBC 16,600, hbg 13.6, lactate 2.3, glucose 135, alk phos 150, CRP 16.2. Pt was also due for halter monitor test
outpatient.
01/2021- Dr. Shepherd colon adequate prep to TI - Non-bleeding internal hemorrhoids.
- The examination was otherwise normal.
- The examined portion of the ileum was normal.
- Three diminutive polyps in the rectum, removed with
a jumbo cold forceps. Resected and retrieved.
- Biopsies were taken with a cold forceps from the
entire colon for evaluation of microscopic colitis
bx neg microscopic colitis, polyp HP changes
01/2021- Dr. Shepherd - Normal esophagus.
- Erythematous mucosa in the antrum with hematin.
Biopsied.
- Normal examined duodenum. Biopsied.
bx neg celiac, neg H pylori, neg metaplasia
Past Medical History
Past Medical History: Psychiatric (anxiety ) and Other (chronic pain, HNP, Ezema, cutaneous T cell lymphoma )
Past Surgical History: Orthopedic (back surgery ) and Other (recent breast augmentation and tummy tuck )
Social History
Tobacco: Non-Smoker
Alcohol: None
Drug: None
Personal:
Living: With Family
Family History
Family History: Other (aunt and sister with IBD, brother with IBS)
Allergies / Home Medications
Allergy/AdvReac Type Severity Reaction Status Date / Time
No Known Allergies Allergy Verified 10/30/24 20:17
�Medication �Instructions �Recorded
prenat.vits,elly,[id number] 1 tab PO DAILY Supplement 01/27/22
methadone 10 mg/mL oral concentrate 70 mg PO QPM substance use disorder 01/28/22
methadone 10 mg/mL oral concentrate 110 mg PO DAILY substance use 01/28/22
disorder
acetaminophen 325 mg tablet 650 mg (2 x 325 mg) PO Q4HPRN PRN 01/29/22
mild pain #30 tabs
ibuprofen 600 mg tablet 600 mg PO Q6HPRN PRN moderate 01/29/22
pain/cramps #30 tabs
Review of Systems
-
History Source: Patient
Constitutional: Reports Weight Loss
EENT: Reports No Symptoms
Respiratory: Reports Other (chest tightness )
Abdomen/GI: Reports Abdominal Pain, Diarrhea and Bloody Stools
: Reports No Symptoms
Musculoskeletal: Reports No Symptoms
Skin: Reports No Symptoms
Neurological: Reports Dizzy and Weakness
Endocrine: Reports No Symptoms
Hematologic/Lymphatic: Reports Bleeding
Vital Signs
Temp Pulse Resp BP Pulse Ox
98.9 F 97 14 104/63 98
10/31/24 07:35 10/31/24 07:35 10/31/24 07:35 10/31/24 07:35 10/31/24 07:35
Physical Exam
Exam
General: Other (pale appearing, slight anxiety with abdominal pain)
HEENT: Normocephalic and Anicteric
Respiratory: Clear
Cardiac: Regular Rhythm (with period of tachycardia )
GI: Soft, Non Distended and Tender (diffuse )
Musculoskeletal: No Clubbing and No Cyanosis
Skin: Warm and Dry
Neuro: Awake, Alert and AO x 3
Psych: Calm
Results
WBC 10.2 10^3/uL (4.8-10.8) 10/31/24 06:08
Hgb 10.3 g/dL (12.0-16.0) L D 10/31/24 06:08
Hct 30.8 % (37.0-47.0) L 10/31/24 06:08
MCV 89.3 fL (81.0-99.0) 10/31/24 06:08
Plt Count 340 10^3/uL (130-400) D 10/31/24 06:08
Absolute Neuts (auto) 13.6 10^3/uL (1.4-6.5) H 10/30/24 21:11
Sodium 135 mmol/L (135-145) 10/31/24 06:08
Potassium 4.1 mmol/L (3.5-5.1) 10/31/24 06:08
Chloride 102 mmol/L (98-107) 10/31/24 06:08
Carbon Dioxide 27 mmol/L (22-30) 10/31/24 06:08
BUN 12 mg/dl (7-17) 10/31/24 06:08
Creatinine 0.5 mg/dL (0.6-1.0) L 10/31/24 06:08
Calcium 9.0 mg/dl (8.4-10.2) 10/31/24 06:08
Total Bilirubin 0.6 mg/dl (0.2-1.3) 10/30/24 21:11
AST 27 U/L (14-36) 10/30/24 21:11
ALT 26 U/L (0-35) 10/30/24 21:11
Alkaline Phosphatase 150 U/L (38-126) H 10/30/24 21:11
Diagnostic Image Results:
10/03/24 CT A/p IV contrast
CT findings could reflect a mild enteritis. No other acute process identified in the abdomen or pelvis.
Cholelithiasis.
10/09/24 CT PE.A/p
No evidence of central pulmonary embolism.
Likely gallbladder stones.
Mild rectal wall thickening which may be due to underdistention or proctitis.
Fluid-filled small bowel again seen, nonspecific, cannot exclude enteritis some mild mesenteric congestion. No intestinal obstruction or free air. Appendix not discretely identified.
10/31/24 CT PE A/p
No acute disease of the chest, abdomen and pelvis. No evidence of pulmonary embolus nor aortic dissection.
Probable partially calcified gallstone versus gallbladder sludge. Stable.
Prior GI Procedures:
01/2021- Dr. Shepherd colon adequate prep to TI - Non-bleeding internal hemorrhoids.
- The examination was otherwise normal.
- The examined portion of the ileum was normal.
- Three diminutive polyps in the rectum, removed with
a jumbo cold forceps. Resected and retrieved.
- Biopsies were taken with a cold forceps from the
entire colon for evaluation of microscopic colitis
bx neg microscopic colitis, polyp HP changes
01/2021- Dr. Shepherd - Normal esophagus.
- Erythematous mucosa in the antrum with hematin.
Biopsied.
- Normal examined duodenum. Biopsied.
bx neg celiac, neg H pylori, neg metaplasia
Assessment / Plan
-
Pt is a 39yo with hx t cell lymphoma follow with Dr. Joseph on topical therapy, prior back surgery, anxiety, chronic pain on methadone with recent breast Augmentation and tummy tuck in July. She recall taking post-op abx then onset of diarrhea.
Per patient recall she was placed on PO vanco but never had stool culture +. She continued with symptoms with multiple ER visits with Ct completed x 3 with neg PE as noted with elevated D dimer, gallstones and mild enteritis. She was due to see
Dr. Shepherd scheduled for November 09 but due to continues issues saw Dr. Schmitz through [place] sooner . She completed further stool GI profile now noted with + c-diff and fecal ELLY 1250 with recent GLORIA + CRP 11.63 and ESR 10 on [facility] labs. In
review with patient she admits to feeling of chest tightness, feeling of palpitations and increasing lower abdominal pain. + wt loss up to 20 lbs with recent illness, She did continued with loose stools and noted some small amount of blood but
increased bleeding prior to admission. She has strong family hx IBD in Aunt and sister and brother with IBS. On admission WBC 16,600, hbg 13.6, lactate 2.3, glucose 135, alk phos 150, CRP 16.2. Pt was also due for halter monitor test outpatient.
01/2021- Dr. Shepherd colon adequate prep to TI - Non-bleeding internal hemorrhoids. HP polyps, neg microscopic colitis
-diarrhea/rectal bleeding
-newly report + c-diff from OP [facility] testing
-elevated fecal elly 1250 + CRP 11.63 and ESR 10
-recent breast Augmentation/tummy tuck 07/2024 with post-op abx/diarrhea and prior vanco therapy
-CT with enteritis
-tachycardia
-elevated lactate on admission
-leukocytosis - improving
other med problems:
-t cell lymphoma follow with Dr. Joseph on topical therapy
- prior back surgery
- chronic pain on methadone
-anxiety
-gallstones
PLAN:
etiology of symptoms with concern for + c-diff-- pt did report prior course of Vanco post surgery and prior neg culture but now + through [facility]
will add Dificid BID
repeat studies pending for stool culture and WBC's, porpheria, fecal elly and drug screen
monitor stool output
ok for clear diet advance as tolerated
t/c eventual repeat colonoscopy -- pt is due follow up with Dr. Shepherd for OP visit to review
reviewed with nursing staff for isolation
pain control per hospitalist
family updated
-
-
Thank you for consultation and allowing me to participate in the patient's care. Please call the [facility] consultant GI physician during the after hours with any questions or concerns.
--- NOTE | 2024-10-31 13:59 | W.PN.HOSP.TC ---
Addendum entered and electronically signed by Rick Watson MD 10/31/24 15:27:
SCDs for PPx since hematochezia
Original Note:
Today's Communication/Plan
-
see PN
Assessment / Plan
Assessment / Plan
39yo F with PMHx of spinal fusion, Hx of opioid dependence due to back pain, recent abdominoplasty in July 2024 developed progressive abdominal pain after surgery, in Jul-August treated with empiric oral Vanc (completed 10 days as per patient) by her
PCP, however had progressive severe abdominal pain. On the day of admission developed hematochezia, so cme to the hosptal. patient had extensive w/u as outpatient and found positive Calprotectin in 1250, positive GLORIA titer 1:160 with homogenous
pattern and on 10/23/22 test - positive C.diff. CT chest for PE and abd/pelvis in ED without acute findings
A/P:
#C.diff colitis with acute on chronic blood loss anemia with hematochezia
#Elevated alk.phos
Stool Cx
Dificid as per GI. Colonoscopy outpatient eventually
CT with partially calcified gallstone versus gallbladder sludge -HIDA pending
#Positive GLORIA
can be 2/2 IBD with elevated calprotectin
If IBD w/u neg - advised outpatient plasma center technician - patient verbalized understanding
#Leukocytosis
#Thrombocytosis
on admission
most likely dehydration
cont IVF
#Back pain
recently developed transivet LE nmbness
MRI lumbar spine
#execcive bruising
check PT/PTT - if elevated, will need outpatient 4 year olds preschool teacher
DVT ppx lovenox
Full code
I have spent at least 59min reviewing chart, test results, communication with consultants and providing direct patient care
Anticipated Discharge: 24 - 48 hours
Subjective/Interval History
-
Date of Service: October 31, 2024
Objective Data
-
Labs:
Laboratory Results
10/31/24
06:08
WBC 10.2
Hgb 10.3 L D
Hct 30.8 L
Plt Count 340 D
Sodium 135
Potassium 4.1
Chloride 102
Carbon Dioxide 27
BUN 12
Creatinine 0.5 L
Glucose 103 H
Calcium 9.0
Vital Signs:
Vital Signs
Temp Pulse Resp BP Pulse Ox
98.9 F 97 14 104/63 98
10/31/24 07:35 10/31/24 07:35 10/31/24 07:35 10/31/24 07:35 10/31/24 07:35
Review of Systems
-
History Source: Patient
All other systems: Reviewed and negative
Constitutional: Reports Weight Loss
Abdomen/GI: Reports Abdominal Pain
Neuro: Reports Numbness (b/l LE)
Physical Exam
-
General: No Apparent Distress
HEENT: Normocephalic
Respiratory: Clear to Auscultation; Negative Wheezes or Crackles
Cardiac: Regular Rhythm
GI: Soft, Nondistended and Tender
Musculoskeletal: No Clubbing, No Cyanosis and No Edema
Neuro: Awake, Alert, Oriented, AO x 3 and No Motor Deficits
Psych: Calm
[2024-10-31 14:19] LABS: Reticulocyte Count 1.1 % (0.4-2.8)
[2024-10-31 14:33] LABS: APTT 30.3 Sec (23.4-35.0); INR 1.02; PT 13.9 Sec (11.4-14.6)
[2024-10-31] MEDS: RITALIN 5 MG PO (14:41)
[2024-10-31] MEDS: DIFICID 200 MG PO ×2 (14:42→20:57)
[2024-10-31 15:35] VITALS: BP 121/70
[2024-10-31 15:47] LABS: Iron 30 ug/dl (37-170); LDH 217 U/L (120-246); Magnesium 2.0 mg/dl (1.6-2.3)
[2024-10-31 15:56] LABS: Total Iron Binding Capacity 292 ug/dl (265-497)
[2024-10-31 16:10] LABS: Cortisol, Random 13.5 ug/dl
[2024-10-31 16:14] LABS: Ferritin 109.0 ng/ml (6.24-137)
[2024-10-31 16:46] LABS: Folate 7.8 ng/ml (2.76-20); Vitamin B12 643 pg/ml (239-931)
[2024-10-31] MEDS: FERRLECIT 110 MG IV (18:03)
--- NOTE | 2024-10-31 19:16 | PTCARENOTE ---
Communicated with patient, pharmacy, and MD regarding patients Methadone taken at home, 24mg BID. Received form for patient to sign regarding clinic/prescription information to be sent over for verification. Form sent back to pharmacy. Awaiting
verification.
[2024-10-31 23:23] VITALS: BP 109/53
[2024-11-01] MEDS: DILAUDID 1 MG IV ×6 (03:00→20:59)
[2024-11-01 08:08] VITALS: BP 104/57
[2024-11-01] MEDS: DIFICID 200 MG PO ×2 (08:14→20:25)
[2024-11-01 08:18] LABS: Hematocrit 30.7 % (37.0-47.0); Hemoglobin 10.0 g/dL (12.0-16.0); Mean Corp Hgb Conc. 32.6 g/dL (33.0-37.0); Mean Corpuscular Volume 91.1 fL (81.0-99.0); Platelet Count 318 10^3/uL (130-400); Red Cell Dist. Width 12.5 % (11.5-14.5)
--- NOTE | 2024-11-01 11:08 | W.PN.HOSP.TC ---
Addendum entered and electronically signed by iRck Watson MD 11/01/24 11:15:
#MIRTHA
iron IV and outpatient w/u
#Hx of tachycardia
scheduled outpatient card
telemetry while inpatient
Original Note:
Today's Communication/Plan
-
pending PBG urine
Abd dyscomfort improving
NeuroSx consult
Assessment / Plan
Assessment / Plan
39yo F with PMHx of spinal fusion, Hx of opioid dependence due to back pain, recent abdominoplasty in July 2024 developed progressive abdominal pain after surgery, in Jul-August treated with empiric oral Vanc (completed 10 days as per patient) by her
PCP, however had progressive severe abdominal pain. On the day of admission developed hematochezia, so cme to the hospital. patient had extensive w/u as outpatient and found positive Calprotectin in 1250, positive GLORIA titer 1:160 with homogenous
pattern and on 10/23/22 test - positive C.diff. CT chest for PE and abd/pelvis in ED without acute findings. FOund c.diff colitis and progression of lumbar spinal disease
A/P:
#C.diff colitis with acute on chronic blood loss anemia with hematochezia
#Elevated alk.phos
Stool Cx
Dificid as per GI. Colonoscopy outpatient eventually
CT with partially calcified gallstone versus gallbladder sludge - HIDA neg for biliary pathology
PBG urine pending
#Positive GLORIA
can be 2/2 IBD with elevated calprotectin
If IBD w/u neg - advised outpatient metal sprayer machined parts - patient verbalized understanding
#Leukocytosis
#Thrombocytosis
on admission
most likely dehydration
cont IVF
#Back pain with Hx of L5/S1 surgery in [place]
#Chronic opioid dependence on methadone due to pain
recently developed transient LE numbness
MRI lumbar spine: Interval progression of degenerative disc disease at L4-5. Interval development of bilateral lateral recess stenosis as well as moderate overall central canal stenosis. Moderate right foraminal narrowing which has significantly
increased since 2012 examination.
NeuroSx consult
cont pain mgmt
#excessive bruising
PT/PTT - WNL
DVT ppx lovenox
Full code
I have spent at least 52min reviewing chart, test results, communication with consultants and providing direct patient care
Anticipated Discharge: 24 - 48 hours
Subjective/Interval History
-
Date of Service: November 01, 2024
Objective Data
-
Labs:
Laboratory Results
11/01/24
08:00
WBC 5.2
Hgb 10.0 L
Hct 30.7 L
Plt Count 318
Vital Signs:
Vital Signs
Temp Pulse Resp BP Pulse Ox
98.7 F 85 16 104/57 100
11/01/24 08:08 11/01/24 08:08 11/01/24 08:08 11/01/24 08:08 11/01/24 08:08
I&O
10/31/24 11/01/24 11/02/24
06:59 06:59 06:59
Intake Total 1200 / 1200 240 / 240
Output Total 100 / 100
Balance 1200 / 1200 140 / 140
Review of Systems
-
History Source: Patient
All other systems: Reviewed and negative
Abdomen/GI: Reports Abdominal Pain and Bloated
Musculoskeletal: Reports Other (bck pain)
Neuro: Reports Numbness (b/l LE intermittent)
Physical Exam
-
General: No Apparent Distress
HEENT: Normocephalic
Respiratory: Clear to Auscultation
GI: Soft, Nondistended and Tender (diffuse)
Musculoskeletal: No Clubbing, No Cyanosis and No Edema
Skin: Warm
Neuro: Awake, Alert, Oriented, AO x 3 and No Motor Deficits
Psych: Calm
[2024-11-01] MEDS: RITALIN 5 MG PO (11:40)
[2024-11-01] MEDS: METHADONE 100 MG/10 ML 24 MG PO ×2 (11:40→20:25)
[2024-11-01] MEDS: FERRLECIT 110 MG IV (12:10)
--- NOTE | 2024-11-01 12:19 | PN.CDI ---
Addendum entered and electronically signed by Rick Watson MD 11/01/24 12:40:
sepsis never mentioned as no concern for it
Original Note:
CDI
- -
CDI:
Physician Documentation Request
Admit Date: 10/31/24 04:55
Dear Doctor,
Please review the following and provide your response in the progress notes.
Clinical Indicators:
Pt admitted with C.diff colitis with acute on chronic blood loss anemia with hematochezia.
Selected Entries
10/30/24
20:18 10/31/24
02:43 10/31/24
03:00
Pulse 137 101 123
Laboratory Tests
10/30/24
21:11
WBC 16.6 H
Lactic Acid 2.3 H
C-Reactive Protein 16.20 H
Please clarify which of the following most accurately describes the status of the patient's infection:
Sepsis
- Systemic manifestations of infection, with 2 or more SIRS criteria which include:
- Fever >100.9 degrees F or hypothermia < 96.8 degrees F
- Leukocytosis - WBC > 12,000 or leukopenia - WBC < 4,000 or > 10% bands
- Tachycardia > 90 beats per minute
- Tachypnea - RR > 20 breaths per minute or PaCO2 , 32mmHg
Source: Merck Manual 2013
- Indicate the known or suspected underlying infection, such as UTI, pneumonia or cellulitis
- Indicate if a suspected bacterial infection of unknown source
C.diff colitis Only, Without Systemic Illness
Other
Use of terms such as suspected, likely, concern for, or probable (associated with a specific diagnosis that is being evaluated, monitored, or treated as if it exists) are acceptable and can be coded in the inpatient setting, when documented at the
time of discharge.
Thank you,
Noreen Dhillon RN, BSN
CDI Specialist
[place] [facility]
Please use your independent medical judgment in providing your response.
[2024-11-01] MEDS: D5LR IV (12:34)
[2024-11-01 15:00] VITALS: BP 102/66
--- NOTE | 2024-11-01 17:08 | W.PN.GI.CBS2 ---
Today's Communication / Plan
-
-- likely home tomorrow with Dr. Shepherd follow up
Assessment / Plan
-
Pt is a 39yo with hx t cell lymphoma follow with Dr. Joseph on topical therapy, prior back surgery, anxiety, chronic pain on methadone with recent breast Augmentation and tummy tuck in July. She recall taking post-op abx then onset of diarrhea.
Per patient recall she was placed on PO vanco but never had stool culture +. She continued with symptoms with multiple ER visits with Ct completed x 3 with neg PE as noted with elevated D dimer, gallstones and mild enteritis. She was due to see
Dr. Shepherd scheduled for November 09 but due to continues issues saw Dr. Schmitz through [place] sooner . She completed further stool GI profile now noted with + c-diff and fecal ELLY 1250 with recent GLORIA + CRP 11.63 and ESR 10 on [facility] labs. In
review with patient she admits to feeling of chest tightness, feeling of palpitations and increasing lower abdominal pain. + wt loss up to 20 lbs with recent illness, She did continued with loose stools and noted some small amount of blood but
increased bleeding prior to admission. She has strong family hx IBD in Aunt and sister and brother with IBS. On admission WBC 16,600, hbg 13.6, lactate 2.3, glucose 135, alk phos 150, CRP 16.2. Pt was also due for halter monitor test outpatient.
01/2021- Dr. Shepherd colon adequate prep to TI - Non-bleeding internal hemorrhoids. HP polyps, neg microscopic colitis
-diarrhea/rectal bleeding
-newly report + c-diff from OP [facility] testing
-elevated fecal elly 1250 + CRP 11.63 and ESR 10
-recent breast Augmentation/tummy tuck 07/2024 with post-op abx/diarrhea and prior vanco therapy
-CT with enteritis
-tachycardia
-elevated lactate on admission
-leukocytosis - improving
other med problems:
-t cell lymphoma follow with Dr. Joseph on topical therapy
- prior back surgery
- chronic pain on methadone
-anxiety
-gallstones
10/24/24 +cdiff toxin and fecal calpro 1250 ([facility] reviewed)
10/31/24 started dificid in the pm
11/01/24: minimal output just some gelatinous output
-- likely discharge tomorrow
-- has follow up with Dr. Shepherd on 11/09
-- very anxious
Subjective
Subjective
Date of Service: November 01, 2024
Patient complains of some mild stabbing-like pain in the lower abdomen. She is only had some mild mucus output today but no bowel movements. Tolerating food well
Objective
Data Reviewed
Laboratory Data:
Laboratory Results
11/01/24 08:00
10/31/24 06:08
Laboratory Results
PT 13.9 Sec (11.4-14.6) 10/31/24 14:13
INR 1.02 10/31/24 14:13
APTT 30.3 Sec (23.4-35.0) 10/31/24 14:13
Phosphorus 3.7 mg/dl (2.5-4.5) 10/31/24 06:08
Magnesium 2.0 mg/dl (1.6-2.3) 10/31/24 06:08
Total Bilirubin 0.6 mg/dl (0.2-1.3) 10/30/24 21:11
AST 27 U/L (14-36) 10/30/24 21:11
ALT 26 U/L (0-35) 10/30/24 21:11
Alkaline Phosphatase 150 U/L (38-126) H 10/30/24 21:11
Vital Signs and I&O:
Vital Signs
Temp Pulse Resp BP Pulse Ox
99.1 F 97 20 102/66 96
11/01/24 15:00 11/01/24 15:00 11/01/24 15:00 11/01/24 15:00 11/01/24 15:00
I&O
10/31/24 11/01/24 11/02/24
06:59 06:59 06:59
Intake Total 1200 / 1200 240 / 240
Output Total 100 / 100
Balance 1200 / 1200 140 / 140
Physical Exam
Physical Exam
HEENT: Anicteric
Cardiology: Normal Sinus Rhythm
GI: Soft, Non Distended and Tender (315: Minimal tenderness in the lower abdomen)
Extremities: No Edema
Neuro: Non Focal
--- NOTE | 2024-11-01 18:04 | CON.NS ---
Consultation
-
Date/Time Consultation Performed: 11/01/24
Chief Complaint
-
Back and leg pain
History of Present Illness
This is a 39-year-old female admitted for possible C. difficile colitis. She has a history of lumbar laminectomy and fusion in 2011. She notes that while straining to have a bowel movement she developed numbness and tingling in her left leg as
well as pain across her low back. She felt like her left leg was weak. Since then it has essentially resolved.
Review of Systems
-
10 point review of systems negative except stated in HPI
Medication and Allergies
Home Medications
Home Medications
�Medication �Instructions �Recorded
prenat.vits,elly,arf-gomy-irxiv 1 tab PO DAILY Supplement 01/27/22
acetaminophen 325 mg tablet 650 mg (2 x 325 mg) PO Q4HPRN PRN 01/29/22
mild pain #30 tabs
ibuprofen 600 mg tablet 600 mg PO Q6HPRN PRN moderate 01/29/22
pain/cramps #30 tabs
Methadone Intensol 24 mg PO BID 11/01/24
Allergies
Allergies
Allergy/AdvReac Type Severity Reaction Status Date / Time
No Known Allergies Allergy Verified 10/30/24 20:17
Physical Exam
-
Exam:
Awake alert oriented x 3
Cranials 2 through 12 gross intact motor strength testing reveals 5-5 upper lower extremity strength
Sensory is normal
Reflexes are normal
Independent interpretation of the MRI of the lumbar spine reveals prior L5-S1 posterior spinal instrumented fusion with interbody fusion, at the L4-5 level there is significant adjacent segment disease causing tricompartmental stenosis and
compression of the nerve roots.
Problems
-
Problem Status Onset Code
Abdominal pain Acute R10.9
Assessment / Plan
-
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
1. No acute neurosurgical interventions
2. Patient has essentially recovered from what ever event had taken place that caused her left leg symptoms
3. Recommend outpatient follow-up with my office once the patient discharges to discuss further management of her lumbar adjacent segment disease.
4. Neurosurgery will sign off at this time
[2024-11-01 23:14] VITALS: BP 104/60
[2024-11-02] MEDS: DILAUDID 1 MG IV ×3 (03:02→13:58)
[2024-11-02 03:08] VITALS: BP 98/59
--- NOTE | 2024-11-02 05:40 | W.PN.GI.CBS2 ---
Today's Communication / Plan
-
Continue Dificid 200 mg BiD for complete 10-day course. Has close outpatient f/u with her primary Extruding Press Adjuster with Dr. Shepherd on 11/09. See rest of care as outlined below. GI will sign-off, please recontact with any questions or concerns.
Assessment / Plan
-
Pt is a 39yo with hx t cell lymphoma follow with Dr. Joseph on topical therapy, prior back surgery, anxiety, chronic pain on methadone with recent breast Augmentation and tummy tuck in July. She recall taking post-op abx then onset of diarrhea.
Per patient recall she was placed on PO vanco but never had stool culture +. She continued with symptoms with multiple ER visits with Ct completed x 3 with neg PE as noted with elevated D dimer, gallstones and mild enteritis. She was due to see
Dr. Shepherd scheduled for November 09 but due to continues issues saw Dr. Schmitz through [place] sooner . She completed further stool GI profile now noted with + c-diff and fecal ELLY 1250 with recent GLORIA + CRP 11.63 and ESR 10 on [facility] labs. In
review with patient she admits to feeling of chest tightness, feeling of palpitations and increasing lower abdominal pain. + wt loss up to 20 lbs with recent illness, She did continued with loose stools and noted some small amount of blood but
increased bleeding prior to admission. She has strong family hx IBD in Aunt and sister and brother with IBS. On admission WBC 16,600, hbg 13.6, lactate 2.3, glucose 135, alk phos 150, CRP 16.2. Pt was also due for halter monitor test outpatient.
01/2021- Dr. Shepherd colon adequate prep to TI - Non-bleeding internal hemorrhoids. HP polyps, neg microscopic colitis
-diarrhea/rectal bleeding
-newly report + c-diff from [facility] testing
-elevated fecal elly 1250 + CRP 11.63 and ESR 10
-recent breast Augmentation/tummy tuck 07/2024 with post-op abx/diarrhea and prior vanco therapy
-CT with enteritis
-tachycardia
-elevated lactate on admission
-leukocytosis - improving
other med problems:
-t cell lymphoma follow with Dr. Joseph on topical therapy
- prior back surgery
- chronic pain on methadone
-anxiety
-gallstones
10/24/24 +cdiff toxin and fecal calpro 1250 ([facility] reviewed)
10/31/24 started dificid in the pm without any further diarrhea or abdominal pain, only small amount of mucous and gelatinous output
Recommendations
- Low-fiber, low-residue diet as tolerated
- Continue Dificid while inpatient
- Recommend completion Dificid 200 mg Bid for 10-day course for her C Diff
- Has follow-up with Dr. Shepherd as an outpatient on 11/09/24 for consideration of outpatient colonoscopy and further w/u of her MIRTHA
- Discussed strict avoidance of NSAIDs
- Rest of care as per primary team
Discussed with primary internal medicine team. GI will sign-off, please recontact with any questions or concerns.
Subjective
Subjective
Date of Service: November 02, 2024
- No acute events overnight, remains on Dificid 200 mg BiD for C Diff
Feeling better this AM, having less abdominal discomfort and passing flatus. Denies any diarrhea and last BM 2-3 days ago with mucoid stools but improving. Tolerating diet without difficulty. No other fevers, chills or other constitutional symptoms.
Objective
Data Reviewed
Laboratory Data:
Laboratory Results
11/01/24 08:00
10/31/24 06:08
Laboratory Results
PT 13.9 Sec (11.4-14.6) 10/31/24 14:13
INR 1.02 10/31/24 14:13
APTT 30.3 Sec (23.4-35.0) 10/31/24 14:13
Phosphorus 3.7 mg/dl (2.5-4.5) 10/31/24 06:08
Magnesium 2.0 mg/dl (1.6-2.3) 10/31/24 06:08
Total Bilirubin 0.6 mg/dl (0.2-1.3) 10/30/24 21:11
AST 27 U/L (14-36) 10/30/24 21:11
ALT 26 U/L (0-35) 10/30/24 21:11
Alkaline Phosphatase 150 U/L (38-126) H 10/30/24 21:11
Vital Signs and I&O:
Vital Signs
Temp Pulse Resp BP Pulse Ox
98.1 F 86 17 98/59 98
11/02/24 03:08 11/02/24 03:08 11/02/24 03:08 11/02/24 03:08 11/02/24 03:08
I&O
10/31/24 11/01/24 11/02/24
06:59 06:59 06:59
Intake Total 1200 / 1200 1680 / 1680
Output Total 100 / 100
Balance 1200 / 1200 1580 / 1580
Physical Exam
Physical Exam
HEENT: Anicteric and Moist mucous membranes
Pulmonary: Other (Normal WOB on room air)
GI: Soft, Non Distended and Non Tender
Extremities: No Edema
Neuro: Non Focal
[2024-11-02 07:00] VITALS: BP 100/62
[2024-11-02] MEDS: METHADONE 100 MG/10 ML 24 MG PO (09:12)
[2024-11-02] MEDS: DIFICID 200 MG PO (09:12)
[2024-11-02 11:00] VITALS: BP 121/70
--- NOTE | 2024-11-02 11:38 | W.PN.HOSP.TC ---
Today's Communication/Plan
-
dc
Assessment / Plan
Assessment / Plan
39yo F with PMHx of spinal fusion, Hx of opioid dependence due to back pain on ORT , recent abdominoplasty in July 2024 developed progressive abdominal pain after surgery, in Jul-August treated with empiric oral Vanc (completed 10 days as per patient)
by her PCP, however had progressive severe abdominal pain. On the day of admission developed hematochezia, so cme to the hospital. patient had extensive w/u as outpatient and found positive Calprotectin in 1250, positive GLORIA titer 1:160 with
homogenous pattern and on 10/23/22 test - positive C.diff. CT chest for PE and abd/pelvis in ED without acute findings. FOund c.diff colitis and progression of lumbar spinal disease. As per GI - started Dificid and to follow on 11/09/24 in the clinic.
Results of PBG test to be discussed with GI, when available. Since patient on opioid-replacement therapy - cannot provide outpatient opiods and pain level not significant to justify it. More of flatulence. As per patient - her GI provided prior
auth for additional days of DIficid - will need 16 more pills. Patient will pick them up from the pharmacy. Medically stable and agreeable for D/C
A/P:
#C.diff colitis with acute on chronic blood loss anemia with hematochezia
#Elevated alk.phos
Stool Cx
Dificid as per GI. Colonoscopy outpatient eventually
CT with partially calcified gallstone versus gallbladder sludge - HIDA neg for biliary pathology
PBG urine pending - to follow with
#Positive GLORIA
can be 2/2 IBD with elevated calprotectin
If IBD w/u neg - advised outpatient fruit sorter - patient verbalized understanding
#Leukocytosis
#Thrombocytosis
on admission
most likely dehydration
cont IVF
#Back pain with Hx of L5/S1 surgery in [place]
#Chronic opioid dependence on methadone (opioid replacement therapy)
recently developed transient LE numbness
MRI lumbar spine: Interval progression of degenerative disc disease at L4-5. Interval development of bilateral lateral recess stenosis as well as moderate overall central canal stenosis. Moderate right foraminal narrowing which has significantly
increased since 2012 examination.
NeuroSx consult: no need for acute intervention, outpatient follow up
cont pain mgmt
#excessive bruising
PT/PTT - WNL
DVT ppx lovenox
Full code
I have spent at least 36min reviewing chart, test results, communication with consultants and providing direct patient care
Anticipated Discharge: Today
Subjective/Interval History
-
Date of Service: November 02, 2024
Objective Data
-
Vital Signs:
Vital Signs
Temp Pulse Resp BP Pulse Ox
98.0 F 104 18 121/70 97
11/02/24 11:00 11/02/24 11:00 11/02/24 11:00 11/02/24 11:00 11/02/24 11:00
I&O
11/01/24 11/02/24 11/03/24
06:59 06:59 06:59
Intake Total 1200 / 1200 1680 / 1680
Output Total 100 / 100
Balance 1200 / 1200 1580 / 1580
Review of Systems
-
History Source: Patient
All other systems: Reviewed and negative
Abdomen/GI: Reports Abdominal Pain
Physical Exam
-
General: No Apparent Distress
HEENT: Normocephalic
Respiratory: Clear to Auscultation
Cardiac: Regular Rhythm
GI: Soft, Nontender and Nondistended
Skin: Warm
Neuro: Awake, Alert, Oriented and AO x 3
Psych: Calm
--- NOTE | 2024-11-02 12:35 | CM ---
Dr. Watson requested pricing for dificid. Call to pt's pharmacy who advised that the first 5 days are covered, however additional medication requires a prior authorization for coverage.
notified Dr. Watson via [facility] [employer].
[2024-11-02] MEDS: FERRLECIT 110 MG IV (12:39)
[2024-11-02] MEDS: RITALIN 5 MG PO (12:39)
--- NOTE | 2024-11-02 13:08 | W.DCSUMMARY ---
Discharge Summary
Discharge Data
Date of Admission: 10/31/24
Date of Discharge: 11/02/24
-
Pending Results: Yes
Additional Pending Results:
PBG
Hospital Course
39yo F with PMHx of spinal fusion, Hx of opioid dependence due to back pain on ORT , recent abdominoplasty in July 2024 developed progressive abdominal pain after surgery, in Jul-August treated with empiric oral Vanc (completed 10 days as per patient)
by her PCP, however had progressive severe abdominal pain. On the day of admission developed hematochezia, so cme to the hospital. patient had extensive w/u as outpatient and found positive Calprotectin in 1250, positive GLORIA titer 1:160 with
homogenous pattern and on 10/23/22 test - positive C.diff. CT chest for PE and abd/pelvis in ED without acute findings. FOund c.diff colitis and progression of lumbar spinal disease. As per GI - started Dificid and to follow on 11/09/24 in the clinic.
Results of PBG test to be discussed with GI, when available. Since patient on opioid-replacement therapy - cannot provide outpatient opiods and pain level not significant to justify it. More of flatulence. As per patient - her GI provided prior
auth for additional days of DIficid - will need 16 more pills. Patient will pick them up from the pharmacy. Medically stable and agreeable for D/C. Recommended eventual colonoscopy in 4-6 weeks to start w/u for IBD
I have spent at least 36min reviewing chart, test results, communication with consultants and providing direct patient care
Patient was managed for:
#C.diff colitis with acute on chronic blood loss anemia with hematochezia
#Elevated alk.phos
#Positive GLORIA
#Leukocytosis
#Thrombocytosis
#Back pain with Hx of L5/S1 surgery in [place]
#Chronic opioid dependence on methadone (opioid replacement therapy)
#excessive bruising
Discharge Plan
-
Patient Disposition: Home (Routine Discharge)
Discharge Diagnosis/Procedures: c.diff colitis
Diet: Regular
Referrals:
Karon Shepherd MD [Active, Gastroenterology]
Referral Note: follow up 11/09 as scheduled
Micah Coates DO [Active, Neurosurgery]
UNKNOWN - PT DOES,NOT KNOW [Family Provider]
Prescriptions:
New
fidaxomicin [Dificid] 200 mg Tablet
200 mg PO BID Qty: 16 0RF
ferrous sulfate 325 mg (65 mg iron) tablet
325 mg PO DAILY Qty: 30 0RF
Continued
acetaminophen 325 mg Tablet
650 mg PO Q4HPRN PRN (Reason: mild pain) Qty: 30 0RF
Methadone Intensol
24 mg PO BID
Patient Comments:
Confirmed dose janeth Zapata 11/01/24
Discontinued
prenat.vits,elly,adg-himl-rkjcu Tablet
1 tab PO DAILY
ibuprofen 600 mg Tablet
600 mg PO Q6HPRN PRN (Reason: moderate pain/cramps) Qty: 30 0RF
Discharge Orders:
Discharge Patient (As Directed); Ordered 11/02/24
Ordered By: Rick Watson
Discharge Date and Time
Print Language: SPANISH
--- NOTE | 2024-11-02 14:47 | CM ---
Addendum entered by Yani Reyes 11/02/24 14:48:
Radha lives with her in a 2 story home with no entry steps. She reports being (I) with ambulation ADLs. No needs identified.
Original Note:
CM following for discharge to home. Plan for outpatient f/u with GI.
[2024-11-02 14:53] VITALS: BP 101/70
== END 2024-11-02 15:00 | disposition home or self-care (01) | DRG 372 ==
LOC: 3 WEST ACU 04:55
PROVIDERS: Emergency Medicine; Nurse Practitioner Adult Health; ADMITTING PHYSICIAN Internal Medicine; ATTENDING PHYSICIAN Internal Medicine; CONSULT PHYSICIAN Internal Medicine; CONSULT PHYSICIAN Neurological Surgery; EMERGENCY PHYSICIAN Student in an Organized Health Care Education/Training Program
DX: A04.72 Enterocolitis due to Clostridium difficile, not specified as recurrent (principal); C84.A0 Cutaneous T-cell lymphoma, unspecified, unspecified site; F11.20 Opioid dependence, uncomplicated; E87.20 Acidosis, unspecified; D62 Acute posthemorrhagic anemia; M51.360 Other intervertebral disc degeneration, lumbar region with discogenic back pain only; G89.29 Other chronic pain; F41.9 Anxiety disorder, unspecified; R74.8 Abnormal levels of other serum enzymes; R76.8 Other specified abnormal immunological findings in serum; G43.909 Migraine, unspecified, not intractable, without status migrainosus; K80.20 Calculus of gallbladder without cholecystitis without obstruction; M48.061 Spinal stenosis, lumbar region without neurogenic claudication; D75.839 Thrombocytosis, unspecified; E86.0 Dehydration; Z98.1 Arthrodesis status; Z83.79 Family history of other diseases of the digestive system
CPT/HCPCS: 71275; 72158; 74177; 78226; 80048; 80053; 80306; 80307; 81003; 81015; 82533; 82607; 82728; 82746; 83010; 83540; 83550; 83605; 83615; 83735; 84100; 84443; 84703; 85025; 85027; 85045; 85610; 85652; 85730; 86140; 96361; 96374; 96375; 96376; 99291; A9537; A9575; J2916; Q9967

== ENCOUNTER → 2024-11-19 14:10 | Outpatient (REF) | payer OTHER, SELFPAY | LOC: RCS 14:10 | PROVIDERS: ATTENDING PHYSICIAN Hospitalist | DX: R00.0 Tachycardia, unspecified (principal) | CPT/HCPCS: 93225; 93226 ==

== ENCOUNTER 2024-12-17 06:24 | Day surgery (SDC) | payer OTHER, SELFPAY | END 2024-12-17 10:22 | disposition home or self-care (01) | LOC: GI 06:24 | PROVIDERS: ATTENDING PHYSICIAN Internal Medicine Gastroenterology | DX: K52.9 Noninfective gastroenteritis and colitis, unspecified (principal); K63.89 Other specified diseases of intestine; K64.8 Other hemorrhoids; D50.9 Iron deficiency anemia, unspecified; K44.9 Diaphragmatic hernia without obstruction or gangrene; K31.89 Other diseases of stomach and duodenum; R13.10 Dysphagia, unspecified; Z83.79 Family history of other diseases of the digestive system | CPT/HCPCS: 45380; 43239; 88305; 88342 ==